=== PATIENT | female | born 1975 | race Caucasian/White ===

== ENCOUNTER 2023-10-04 03:50 | Emergency (ER) | payer BC ==
--- NOTE | 2023-10-04 04:03 | ERPHSYRPT ---
- History of Present Illness Time Seen by Provider: 10/04/23 04:02 Source: patient Exam Limitations: no limitations Patient Subjective Stated Complaint: tachycardia Triage Nursing Assessment: patient states that she felt tachycardiac yeserday reports pulse being approx 90, she went to sleep around 1am this morning and then woke back up around 3am and stated her heart rate was 130s and decided to come in for evaluation Physician History: The patient, on a regimen of metoprolol and gabapentin, presented with an episod e of increased heart rate and chills, initially attributed to anxiety. Despite taking ibuprofen and managing to sleep for an hour, the symptoms worsened. The patient denied experiencing chest pain, dizziness, headache, numbness, tingling, weakness, or abdominal pain. She reported feeling short of breath, but not to a concerning degree. There was no reported swelling in the legs. The patient has experienced similar, albeit less severe, episodes in the past. She has been taking metoprolol for anxiety, which usually helps in controlling such episodes. However, this time, the medication did not provide the usual relief, causing the patient to feel nervous. The patient recently started using an estrogen cream and has noticed that similar medications have caused anxiety in the past. She also took 10 mg of Flexeril in an attempt to calm down, but it did not seem to have the desired effect. The patient has no known thyroid issues. Timing/Duration: today Activities at Onset: rest Quality: other (na) Location: other (na) Chest Pain Radiation: no radiation Severity of Pain-Max: none Severity of Pain-Current: none Modifying Factors: Improves With: nothing Nitro Today/Relief: no nitro taken today Aspirin Treatment Today: no aspirin today Associated Symptoms: chills, No nausea, No vomiting, No abdominal pain, No mary jo rtness of breath, No diaphoresis, No cough, No chest pain, No fever, No headaches, No syncope Prior Chest Pain/Cardiac Workup: no prior chest pain Allergies/Adverse Reactions: No Known Drug Allergies Allergy (Unverified 10/04/23 04:01) Home Medications: Gabapentin 100 mg PO HS 10/04/23 [History] Metoprolol Tartrate 25 mg [Lopressor 25MG Tab] 12 mg PO HS 10/04/23 [History] Travel Risk - International Travel Have you traveled outside of the country in past 3 weeks: No - Emerging Infectious Disease Are you exhibiting symptoms associated with any current EIDs: No - Review of Systems All Other Systems: Reviewed and Negative - Past Medical History Neurological History: No Pertinent History Cardiac History: No Pertinent History Respiratory History: No Pertinent History Endocrine Medical History: No Pertinent History Other Medical History: interstitial cystitis - Past Surgical History Female Surgical History: Hysterectomy Other Surgical History: rhinoplasty - Female History Hx Now: No - Social History Smoking Status: Never smoker Exposure to second hand smoke: No Drug Use: none - Nursing Vital Signs Nursing Vital Signs: Initial Vital Signs Pulse Rate 100 H 10/04/23 03:52 Respiratory Rate 18 10/04/23 03:52 Blood Pressure 153/100 10/04/23 03:52 O2 Sat by Pulse Oximetry 93 L 10/04/23 03:52 Pain Scale Pain Intensity 0 - Physical Exam General Appearance: mild distress, anxiety Eye Exam: eyes nml inspection Ears, Nose, Throat Exam: normal ENT inspection Neck Exam: normal inspection, full range of motion Respiratory Exam: normal breath sounds, lungs clear, airway intact, No respiratory distress Cardiovascular Exam: tachycardia, capillary refill <2 sec, No edema Extremity Exam: No kadie's sign, No pedal edema, No swelling Neurologic Exam: alert, oriented x 3, cooperative Skin Exam: normal color, warm, dry SpO2 Interpretation: normal SpO2: 93 O2 Delivery: Room Air - Course Nursing assessment & vital signs reviewed: Yes EKG Interpreted by Me: RATE ([id number]), Sinus Rhythm, NORMAL AXIS, NORMAL INTERVALS, NORMAL QRS, NORMAL ST-T Ordered Tests: Active Orders 24 hr Category Date Time Status Furnace Liner STAT Care 10/04/23 04:04 Active EKG-ER Only STAT Care 10/04/23 04:03 Active CBC W DIFF Stat Lab 10/04/23 04:28 Completed CMP Stat Lab 10/04/23 04:28 Completed MAGNESIUM Stat Lab 10/04/23 04:28 Completed TSH [TSH, 3RD Generation] Stat Lab 10/04/23 04:28 Completed Medication Summary Discontinued Medications Generic Name Dose Route Start Last Admin Trade Name Freq PRN Reason Stop Dose Admin Hydroxyzine HCl 50 mg 10/04/23 04:15 10/04/23 04:24 Hydroxyzine Hcl 25 Mg Tablet PO 10/04/23 04:16 50 mg STAT ONE Administration Hydroxyzine HCl Confirm 10/04/23 04:20 Hydroxyzine Hcl 25 Mg Tablet Administered 10/04/23 04:21 Dose 50 mg .ROUTE .STK-MED ONE Labetalol HCl 100 mg 10/04/23 04:15 10/04/23 04:24 Labetalol Hcl 100 Mg Tablet PO 10/04/23 04:16 100 mg STAT ONE Administration Lab/Rad Data: Laboratory Result Diagrams 10/04/23 04:28 10/04/23 04:28 Laboratory Results 10/04/23 10/04/23 10/04/23 Range/Units 04:28 04:28 04:28 WBC 7.5 (3.98-10.04) x10^3/uL RBC 4.86 (3.93-5.22) x10^6/uL Hgb 14.6 (11.2-15.7) g/dL Hct 43.6 (34.1-44.9) % MCV 89.7 (79.4-94.8) fL MCH 30.0 (25.6-32.2) pg MCHC 33.5 (32.2-35.5) g/dL RDW 12.5 (11.7-14.4) % Plt Count 228 (182-369) x10^3/uL MPV 9.9 (9.4-12.3) fL Gran % 66.2 (34.0-71.1) % Immature Gran % (Auto) 0.3 (0.001-0.429) % Nucleat RBC Rel Count 0.0 (0.00-0.2) % Eos # (Auto) 0.11 (0.04-0.36) x10^3/uL Immature Gran # (Auto) 0.02 (0.001-0.031) x10^3u/L Absolute Lymphs (auto) 1.87 (1.18-3.74) x10^3/uL Absolute Monos (auto) 0.49 (0.24-0.86) x10^3/uL Absolute Nucleated RBC 0.00 (0.00-0.012) x10^3u/L Lymphocytes % 24.8 (19.3-51.7) % Monocytes % 6.5 (4.7-12.5) % Eosinophils % 1.5 (0.7-5.8) % Basophils % 0.7 (0.1-1.2) % Absolute Granulocytes 4.99 (1.56-6.13) x10^3/uL Basophils # 0.05 (0.01-0.08) x10^3/uL Sodium 138 (135-145) mmol/L Potassium 3.6 (3.5-5.1) mmol/L Chloride 103 (98-107) mmol/L Carbon Dioxide 26 (22-30) mmol/L Anion Gap 12.5 (5-15) MEQ/L BUN 17 (7-17) mg/dL Creatinine 0.76 (0.52-1.04) mg/dL Estimated GFR 96.6 ML/MIN Glucose 123 H (74-106) mg/dL Calcium 10.0 (8.4-10.2) mg/dL Magnesium 2.2 (1.6-2.3) mg/dL Total Bilirubin 0.50 (0.2-1.3) mg/dL AST 40 H (14-36) U/L ALT 61 H (0-35) U/L Alkaline Phosphatase 70 (38-126) U/L Serum Total Protein 7.0 (6.3-8.2) g/dL Albumin 4.4 (3.5-5.0) g/dL TSH 3rd Generation 5.220 H (0.470-4.680) mIU/L - Progress Progress: improved Air Movement: good Progress Note: Patient's BP and HR improved. Still feeling anxious. Discussed SSRI, but patient reports not responding well to these meds in the past. Encouraged her to f/u w/ PCP to repeat TSH. Keep BP log over next 2 weeks and f/u w/ PCP to determine if meds needed for blood pressure. Current sxs likley result of anxiety. Blood Culture(s) Obtained: No Antibiotics given: No Counseled pt/family regarding: lab results, diagnosis, need for follow-up Medical Desision Making - Diagnostic Testing Diagnostic test were ordered, analyzed, and reviewed by me: Yes Radiological Interpretation: Interpreted by me - Risk of complications The pt has a mod risk of morbidity or mortality based on: Need for prescription drug management - Departure Departure Disposition: Home Clinical Impression: Tachycardia, Elevated blood pressure reading, Anxiety, Elevated TSH, Tr ansaminitis Condition: Good Critical Care Time: No Referrals: ENEDINA,SILVER LLOYD, [employer] [Primary Care Provider] - Follow up/PCP as directed Instructions: Tachycardia (DC), Anxiety, Adult ED
[2023-10-04] MEDS ORDERED: ATARAX 25 MG ONE (04:20)
[2023-10-04] MEDS: ATARAX 25 MG PO ONE (04:24)
[2023-10-04] MEDS: Trandate 100 MG PO ONE (04:24)
[2023-10-04 04:43] LABS: ALBUMIN 4.4 g/dL (3.5-5.0); ANION GAP 12.5 MEQ/L (5-15); BILIRUBIN,TOTAL 0.5 mg/dL (0.2-1.3); Creatinine 1 0.76 mg/dL (0.52-1.04); EST GLOMERULAR FILTRATION RATE 96.6 ML/MIN; MAGNESIUM 2.2 mg/dL (1.6-2.3); Potassium 3.6 mmol/L (3.5-5.1)
[2023-10-04 05:02] LABS: Absolute Neutrophil Ct (ANC) 4.99 x10^3/uL (1.56-6.13); BASOPHIL % 0.7 % (0.1-1.2); Basophil (Absolute #) 0.05 x10^3/uL (0.01-0.08); Eosinophil % 1.5 % (0.7-5.8); Eosinophil (Absolute #) 0.11 x10^3/uL (0.04-0.36); Hematocrit 43.6 % (34.1-44.9); Hemoglobin 14.6 g/dL (11.2-15.7); IMMATURE GRAN # 0.02 x10^3u/L (0.001-0.031); IMMATURE GRAN % 0.3 % (0.001-0.429); Lymphocyte (Absolute #) 1.87 x10^3/uL (1.18-3.74); Lymphocytes % 24.8 % (19.3-51.7); Mean Cell Volume 89.7 fL (79.4-94.8); Mean Corpuscular Hgb Concent. 33.5 g/dL (32.2-35.5); Mean Platelet Volume 9.9 fL (9.4-12.3); Monocyte (Absolute #) 0.49 x10^3/uL (0.24-0.86); Monocytes % 6.5 % (4.7-12.5); Neutrophil % 66.2 % (34.0-71.1); Platelet Count 228 x10^3/uL (182-369); Red Blood Count 4.86 x10^6/uL (3.93-5.22); Red Cell Distribution Width 12.5 % (11.7-14.4); White Blood Count 7.5 x10^3/uL (3.98-10.04)
[2023-10-04 05:28] VITALS: BP 146/100; PULSE 85; RESP 10
[2023-10-04 05:55] VITALS: O2SAT 93
== END 2023-10-04 06:10 | disposition home or self-care (01) ==
LOC: ED 03:50
DX: R00.0 Tachycardia, unspecified (principal); R03.0 Elevated blood-pressure reading, without diagnosis of hypertension; F41.9 Anxiety disorder, unspecified; R94.6 Abnormal results of thyroid function studies; R74.01 Elevation of levels of liver transaminase levels; Z79.899 Other long term (current) drug therapy
CPT/HCPCS: 36415; 80053; 83735; 84443; 85025; 93005; 93041; 99283; A9270-GY